=== PATIENT | female | born 1995 | race Caucasian/White ===

== ENCOUNTER 2021-10-08 17:53 | Emergency (ER) | payer MEDICARE ==
[~2021-10-08] VITALS: Ht 157.5 cm; Wt 78.0 kg
[2021-10-08] MEDS ORDERED: LIDOCAINE HCL 1% 20ML VIAL (Pyxis) INJ INFIL ONE (19:00)
[2021-10-08] MEDS ORDERED: BACITRACIN ZINC OINT UDPKT TOP ONE (19:00)
[2021-10-08] MEDS ORDERED: IBUPROFEN 600MG TABLET PO ONE (19:00)
[2021-10-08] MEDS ORDERED: TETANUS, DIPHTHERIA, PERTUSSIS VAC/PF 0.5ML (>10YR OLD) IM ONE (19:00)
[2021-10-08] MEDS ORDERED: CEPH500T MT (19:31)
[2021-10-08] MEDS ORDERED: IBUP-2029 MT (19:31)
[2021-10-08 21:09] VITALS: BP 126/90
== END 2021-10-08 21:11 | disposition home or self-care (01) ==
LOC: ER 17:53
DX: S61.214A Laceration without foreign body of right ring finger without damage to nail, initial encounter (principal); X78.1XXA Intentional self-harm by knife, initial encounter; Y93.89 Activity, other specified; Y92.89 Other specified places as the place of occurrence of the external cause; Y99.8 Other external cause status
CPT/HCPCS: 12002; 90471; 90715; 99283; J3490; Z7610

== ENCOUNTER 2023-12-25 19:46 | Emergency (ER) | payer MEDICARE ==
[~2023-12-25] VITALS: Ht 162.6 cm; Wt 85.0 kg
[~2023-12-25 19:46] MED LIST: CEPH500T MT; IBUP-2029 MT
[2023-12-25 20:36] VITALS: O2SAT 100
[2023-12-25 22:24] LABS: CLARITY URINE CLEAR (CLEAR); COLOR URINE DARK YELLOW (YELLOW); GLUCOSE URINE NEGATIVE (NEGATIVE); KETONES URINE NEGATIVE (NEGATIVE); LEUKOCYTE ESTERASE URINE 3+ (NEGATIVE); NITRITE URINE POSITIVE (NEGATIVE); OCCULT BLOOD URINE 2+ (NEGATIVE); PH URINE 6.5 (4.5-8.0); PROTEIN URINE NEGATIVE (NEGATIVE); SPECIFIC GRAVITY URINE 1.002 (1.005-1.030); UROBILINOGEN URINE 0.2 E.U./dL (0.2-1.0)
[2023-12-25 22:44] LABS: BACTERIA URINE 1+
[2023-12-25] MEDS ORDERED: CEPH500C2 MT (22:44)
[2023-12-25 22:45] LABS: SQUAMOUS EPITHELIAL CELL URINE FEW /lpf (RARE/1+)
[2023-12-25 23:10] VITALS: BP 124/66; PULSE 85; RESP 16; TEMP 98.2
== END 2023-12-25 23:16 | disposition home or self-care (01) ==
LOC: ER 20:18
DX: N39.0 Urinary tract infection, site not specified (principal); Z98.890 Other specified postprocedural states
CPT/HCPCS: 81003; 81025; 99283